=== PATIENT | female | born 1980 | race Caucasian/White ===

== ENCOUNTER → 2016-08-05 | Outpatient (CLI) | payer OTHER ==
[~2016-08-05] MED LIST: ALPR0.25 PO; BSP5T PO; CEFU500T5 PO; CIPR500T78 PO; DOXY100C49 PO; DULO60CA6; FLUO20CA25 PO; HYDR-3454 PO; LABE100T2 PO; LEVO100T PO; LEVO500T80 PO; LEVO75TA57 PO; LORA-405 PO; LVT.05T PO; MAGN250T7 PO; MAGNESIUM PO; NAPR-243 PO; OXYC-12 PO; PRCD5U PO; PRD20T PO; PREN-115 PO; SITA1TAB6 PO; SOLI5TAB4 PO; SPIR100T PO; SPIR100T28 PO; TRAM50TA2 PO; YAZ; ZLP10T; ZLP5T PO; janumet; synth
--- NOTE | 2016-08-05 13:50 | Diagnostic Imaging Report ---
EXAMINATION: Transabdominal and transvaginal pelvic ultrasound. INDICATION: Pelvic pain. FINDINGS: The uterus is 7.4 x 5.6 x 3.4 cm. There is an IUD in place. No myometrial focal lesion is identified. The right ovary is 2.6 x 2.2 x 1.9 cm, only seen on transabdominal evaluation, with no focal lesion identified. Peripheral vascularity with color Doppler appears to be present in it. The left ovary is 4.3 x 4.1 x 5.3 cm. There is a 4.8 x 3.3 x 3.3 cm simple appearing cyst seen within the left ovary. Adjacent ovarian tissue demonstrates color flow with arterial and venous waveforms. The cyst itself demonstrates no internal vascularity or solid component. IMPRESSION: 4.8 cm simple appearing left ovarian cyst. Dictated by: Dictated on workstation # [id number]
== END ==
LOC: RAD 10:12
PROVIDERS: ATTEND Nurse Practitioner Family
DX: N83.202 Unspecified ovarian cyst, left side (principal)
CPT/HCPCS: 76830; 76856

== ENCOUNTER → 2017-07-09 | Outpatient (CLI) | payer BC, OTHER ==
--- NOTE | 2017-07-09 12:22 | Diagnostic Imaging Report ---
INDICATION: Pain. COMPARISON: None. FINDINGS: Two views of the right hip are obtained. There is no acute fracture, malalignment or osseous destructive process. Femoral head appears smooth and round. Hip joint space appears preserved. IMPRESSION: No acute abnormalities demonstrated. Dictated by: Dictated on workstation # [id number]
--- NOTE | 2017-07-09 12:30 | Diagnostic Imaging Report ---
EXAMINATION: Pelvic ultrasound. INDICATION: Pelvic pain. FINDINGS: The previous pelvic ultrasound exam of 08/05/2016 noted a 4.8 cm simple cyst arising from the left ovary. That cyst is no longer evident. However, in the interval since the prior exam, a 2.4 x 2.2 x 2.3 cm benign-appearing cyst has developed on the right ovary. This cyst may contain a few internal echoes suggesting that it is slightly complicated by infection and/or hemorrhage. There are a few subcentimeter follicles on the left ovary. There is no pelvic mass or free fluid collection noted. The uterus is nongravid and not enlarged measuring 8.8 x 5.4 x 3.8 cm. The endometrial lining is not thickened measuring 4 mm. There is shadowing from the endometrial lining. I suspect that this is related to the patient's IUD. The IUD seems to be in good position. IMPRESSION: 1. The cyst associated with the left ovary seen previously has resolved, but a new 2.4 x 2.2 x 2.3 cm slightly complicated cyst has arisen from the right ovary. 2. There is no acute pelvic abnormality noted otherwise. 3. The IUD seems to be in good position. Dictated by: Dictated on workstation # [id number]
--- NOTE | 2017-07-09 12:34 | Diagnostic Imaging Report ---
INDICATION: Low back pain. COMPARISON: None. FINDINGS: Three views of the lumbar spine are obtained. No acute fracture, malalignment or osseous destructive process is seen. Vertebral body heights and disc spaces are maintained. The pedicles appear intact. The sacroiliac joints appear unremarkable. There is an intrauterine device seen just left of midline in the pelvis. IMPRESSION: No acute abnormalities demonstrated. Dictated by: Dictated on workstation # [id number]
== END ==
LOC: RAD 10:26
PROVIDERS: ATTEND Nurse Practitioner Family
DX: N83.291 Other ovarian cyst, right side (principal); M54.5 Low back pain; M25.551 Pain in right hip; Z97.5 Presence of (intrauterine) contraceptive device
CPT/HCPCS: 72100; 73502; 76830; 76856

== ENCOUNTER → 2017-07-15 | Outpatient (CLI) | payer BC ==
--- NOTE | 2017-07-15 10:43 | Diagnostic Imaging Report ---
PROCEDURE: MRI lumbar spine. TECHNIQUE: Multiplanar, multisequence MRI of the lumbar spine was performed without contrast. INDICATION: Right low back pain radiates up back. No radiculopathy. FINDINGS: The alignment of the lumbar spine is normal. The vertebral body heights are well-maintained. No spondylolysis or spondylolisthesis. No fractures are identified. There are no marrow signal intensity abnormalities. Conus medullaris seen at L1 is normal in appearance. All of the lumbar discs are normal in height, signal intensity and morphology. There is no focal disc extrusion or evidence high-grade spinal stenosis. There is some mild lower lumbar hypertrophic degenerative facet disease. The abdominal aorta is nonaneurysmal. Kidneys are unremarkable. IMPRESSION: Mild lower lumbar hypertrophic degenerative facet disease otherwise unremarkable. Specifically there is no focal disc extrusion or evidence of high-grade spinal stenosis. Dictated by: Dictated on workstation # [id number]
== END ==
LOC: RAD 08:35
PROVIDERS: ATTEND Internal Medicine
DX: M51.36 Other intervertebral disc degeneration, lumbar region (principal)
CPT/HCPCS: 72148

== ENCOUNTER 2017-08-21 05:40 | Outpatient (CLI) | payer BC ==
[~2017-08-21] VITALS: Ht 167.6 cm; Wt 74.8 kg
[2017-08-21] MEDS ORDERED: LIOT5TAB3 PO (09:15)
[2017-08-21] MEDS ORDERED: SPIR100T4 PO (09:15)
[2017-08-21] MEDS ORDERED: LIRA0.6P SQ (09:15)
[2017-08-21] MEDS ORDERED: BUPR-42 PO (09:15)
[2017-08-21] MEDS ORDERED: TRAZ-189 PO (09:15)
== END 2017-08-21 09:49 ==
LOC: PREOP 05:40
PROVIDERS: ATTEND Obstetrics & Gynecology
DX: Z01.818 Encounter for other preprocedural examination (principal); R10.2 Pelvic and perineal pain

== ENCOUNTER 2017-08-28 07:49 | Day surgery (SDC) | payer BC ==
[~2017-08-28] VITALS: Ht 167.6 cm; Wt 74.8 kg
[~2017-08-28 07:49] MED LIST changes: +BUPR-42 PO; +LIOT5TAB3 PO; +LIRA0.6P SQ; +SPIR100T4 PO; +TRAZ-189 PO
[2017-08-28] MEDS ORDERED: BUPIVACAINE 0.25% 30 ML (SENSORCAINE) VIAL ONE (08:03)
[2017-08-28] MEDS ORDERED: ROCURONIUM 10 MG/ML 5 ML SYRINGE IV ONE (08:05)
[2017-08-28] MEDS ORDERED: LIDOCAINE PF 2% 5 ML (XYLOCAINE) VIAL ONE (08:05)
[2017-08-28] MEDS ORDERED: proPOfol 200 MG/20 ML (DIPRIVAN) VIAL IV ONE (08:05)
[2017-08-28] MEDS ORDERED: ONDANSETRON 4 MG/2 ML (SDV) Z0FRAN ONE (08:05)
[2017-08-28] MEDS ORDERED: SEVOFLURANE (ULTANE) 15 ML INHAL SOLN ONE ×3 (08:05→09:35)
[2017-08-28] MEDS ORDERED: MIDAZOLAM 2 MG/2 ML (VERSED) VIAL ONE (08:07)
[2017-08-28] MEDS ORDERED: fentaNYL INJECTION 100 MCG/2 ML AMP ONE (08:07)
[2017-08-28] MEDS: LACTATED RINGERS 1,000 ML IV PRN ×2 (08:23→09:11)
[2017-08-28 08:30] LABS: BASOPHILS % (AUTO) 0 % (0-10); EOSINOPHILS # (AUTO) 0.1 10^3/uL (0.0-0.3); EOSINOPHILS % (AUTO) 1 % (0-10); HEMATOCRIT 42 % (35-52); HEMOGLOBIN 14.2 G/DL (11.5-16.0); LYMPHOCYTES # (AUTO) 1.8 X 10^3 (1.0-4.0); LYMPHOCYTES % (AUTO) 26 % (12-44); MEAN CORPUSCULAR HEMOGLOBIN 32 PG (25-34); MEAN CORPUSCULAR HGB CONC 34 G/DL (32-36); MEAN CORPUSCULAR VOLUME 95 FL (80-99); MEAN PLATELET VOLUME 9.6 FL (7.4-10.4); MONOCYTES # (AUTO) 0.6 X 10^3 (0.0-1.0); MONOCYTES % (AUTO) 8 % (0-12); NEUTROPHILS # (AUTO) 4.5 X 10^3 (1.8-7.8); NEUTROPHILS % (AUTO) 64 % (42-75); PLATELET COUNT 293 10^3/uL (130-400); RED BLOOD COUNT 4.43 10^6/uL (4.35-5.85); RED CELL DISTRIBUTION WIDTH 12.6 % (10.0-14.5)
[2017-08-28 08:35] VITALS: BP 118/82
[2017-08-28] MEDS ORDERED: D5 LR IV SOLUTION 1,000 ML IV SCH (08:43)
[2017-08-28] MEDS ORDERED: HYDROcodone/APAP 7.5 MG/325 MG (LORTAB, LORCET PLUS) TABLET PO PRN (08:45)
[2017-08-28] MEDS ORDERED: KETOROLAC 30 MG/ML VIAL IVP ONE (08:45)
[2017-08-28] MEDS ORDERED: ONDANSETRON 4 MG/2 ML (SDV) Z0FRAN IVP PRN ×2 (08:45→10:30)
[2017-08-28] MEDS ORDERED: HYDR-757 PO (08:46)
[2017-08-28] MEDS ORDERED: IBUP-1773 PO (08:46)
--- NOTE | 2017-08-28 08:47 | Discharge Inst-Women's Service ---
Discharge Inst-Women's Serv Depart Medication/Instructions New, Converted or Re-Newed RX: RX on Chart Consults/Follow Up Additional Follow Up: Yes Orders/Referrals DR. Chiang in 2 weeks Activity Activity: Activity as Tolerated Driving Instructions: You May Drive (do not drive while taking hydrocodone) NO SMOKING: NO SMOKING Nothing Inside Vagina: No Douching, No [place], No Tampons Diet Discharge Diet: No Restrictions Symptoms to Report to : Bleeding Excessive, Pain Increased, Fever Over 101 Degrees F, Vaginal Bleeding Increase, Questions/Concerns For Any Problems or Questions: Contact Your Physician Skin/Wound Care Infection Signs and Symptoms: Increased Redness, Foul Odor of Wound, Increased Drainage, Skin Itchy or Has a Rash, Increased Swelling, Temperature Above 101 F Operative Area Clean and Dry: Keep Incision Clean/Dry Stitches/[place]/Dermabond: Dermabond, Care of Stitches Bathing Instructions: DIPESH Anderson DO Aug 28, 2017 8:47 am
[2017-08-28] MEDS ORDERED: NEOSTIGMINE 1 MG/ML 5 ML SYRINGE ONE (09:34)
[2017-08-28] MEDS ORDERED: GLYCOPYRROLATE 0.2 MG/ML (ROBINUL) 2 ML VIAL ONE (09:34)
[2017-08-28] MEDS ORDERED: morphine INJ 10 MG/ML 1ML (SYR OR VIAL) ONE (10:06)
[2017-08-28] MEDS ORDERED: morphine INJ 10 MG/ML 1ML (SYR OR VIAL) IVP PRN (10:30)
[2017-08-28] MEDS ORDERED: HYDROmorphone 1 MG/ML (DILAUDID) 1 ML SYRINGE IV PRN (10:30)
--- NOTE | 2017-08-28 10:41 | Anesthesia-General Post-Op ---
General Patient Condition Mental Status/LOC: Same as Preop Cardiovascular: Satisfactory Nausea/Vomiting: Absent Respiratory: Satisfactory Pain: Controlled Complications: Absent Post Op Complications Complications None Follow Up Care/Instructions Patient Instructions None needed. Anesthesia/Patient Condition Patient Condition Patient is doing well, no complaints, stable vital signs, no apparent adverse anesthesia problems. No complications reported per nursing. D/C home per [facility] [place] Criteria: No HUONG WOODALL CRNA Aug 28, 2017 10:41
[2017-08-28 10:50] VITALS: BP 116/71
[2017-08-28 11:20] VITALS: BP 120/99
[2017-08-28 11:50] VITALS: BP 111/79
[2017-08-28 12:20] VITALS: BP 111/79
--- NOTE | 2017-08-28 17:32 | OPERATIVE REPORT ---
DATE OF SERVICE: PREOPERATIVE DIAGNOSES: A 36-year-old female with chronic pelvic pain. POSTOPERATIVE DIAGNOSES: 1. A 36-year-old female with chronic pelvic pain. 2. Endometriosis implants of the pelvic peritoneum. SURGEON: Santos Chiang DO HUMAN RESOURCES TRAINING MANAGER: Candis Banegas, MS-3 ANESTHESIA: General endotracheal. ESTIMATED BLOOD LOSS: Minimal. URINE OUTPUT: 200 mL clear at the end of the procedure. FLUIDS: 1900 mL of lactated Ringer solution. FINDINGS: A grossly normal appearing uterus, bilateral fallopian tubes and ovaries with implants of both clear and dark pigmented endometriosis implants of the pelvic peritoneum including the left pelvic sidewall, the posterior cul-de-sac, the uterosacral ligaments, the ovarian fossa and the left ovary. The vesicouterine peritoneum did not have any implants. SPECIMENS SENT: None. INDICATIONS FOR PROCEDURE: This 36-year-old female was a self-consultation in my office for ongoing issues with chronic pelvic pain. She had a Kyleena IUD, but has had this for several years and has been amenorrheic with the IUD. She also had had a recent new sexual partner; however, initial STD testing and infectious disease testing has all been negative. After a full workup was performed, an ultrasound was performed and found to be normal. We discussed proceeding with diagnostic laparoscopy. The patient was at a point where her pain was significant enough that she thought that this was a good idea as well. Risks of the procedure were discussed with the patient in detail including risks of bleeding, infection, damage to surrounding structures including, but not limited to bowel, bladder, ureter, kidneys, possible need for reoperation, postoperative complications, risks from anesthesia and even . After everything was discussed with the patient, consent was obtained in the preoperative area and the patient was taken to the operating room. OPERATIVE REPORT IN DETAIL: Once in the operating room, general anesthesia was found to be adequate. She was placed in dorsal lithotomy position, prepped and draped in normal sterile fashion. A Ching catheter was placed using sterile technique and timeout was performed. A weighted speculum was inserted in the patient's vagina and the IUD Kyleena strings are identified. I then removed the weighted speculum and placed a sponge stick in the patient's vagina for uterine manipulation. I then took my attention to the abdomen after change of gloves performed and infraumbilically, I infiltrated this area using 0.25% Marcaine to make a 5 mm incision and directed Veress needle through the incision until intraperitoneal placement was confirmed using a saline drop test. I then proceeded with insufflation using CO2 gas and opening pressure of 7 mmHg was noted. I proceeded to a maximum pressure of 15 mmHg, at which point I removed the Veress needle and introduced a 5 mm blunt trocar. I was able to confirm intraperitoneal placement using the laparoscope. I then had the patient placed in steep Trendelenburg and I was able to find all of my findings as listed above. I was not able to manipulate the uterus as well as I would like with just a sponge stick. Therefore, I placed a suprapubic trocar 5 mm and a left lower quadrant trocar 5 mm in similar fashion. Once these were placed under direct visualization of the laparoscope, I was able to manipulate the uterus and cauterized all endometriosis implants as described in my findings above. After which, there was no active bleeding noted from any of my dissection planes. I then copiously irrigated the pelvis using normal saline. Once again, no active bleeding was noted. I then had the patient taken out of steep Trendelenburg where I released insufflation and removed the trocars both suprapubic and the left lower quadrant under direct visualization of the laparoscope. The infraumbilical trocar was left in place to release the last bit of insufflation and to introduce 10 mL of 0.25% Marcaine into the peritoneal cavity for postoperative pain management. I then removed this trocar as well. The skin was then reapproximated using Dermabond. Bandages were placed over the incisions. Ching catheter was removed. The patient tolerated the procedure well and sent to recovery in stable condition. Lap and sponge counts were correct at the end of the procedure. Instrument count was correct as well. Job ID: [id number] DocumentID: [id number] Dictated Date: 08/28/2017 10:01:11 Preform Plate Maker Date: 08/28/2017 17:31:23 Dictated By: DO TREY JIMENEZ
== END 2017-08-28 12:20 | disposition home or self-care (01) ==
LOC: SDC 07:49
PROVIDERS: ATTEND Obstetrics & Gynecology
DX: N80.3 Endometriosis of pelvic peritoneum (principal); E11.9 Type 2 diabetes mellitus without complications; Z79.899 Other long term (current) drug therapy
CPT/HCPCS: 36415; 84703; 85025; 86850; 86900; 86901; 87081; 94664

== ENCOUNTER → 2018-03-12 | Outpatient (CLI) | payer BC ==
[~2018-03-12] MED LIST changes: +HYDR-4226 PO; +IBUP-1773 PO
--- NOTE | 2018-03-12 13:08 | Diagnostic Imaging Report ---
PROCEDURE: MRI lumbar spine. TECHNIQUE: Multiplanar, multisequence MRI of the lumbar spine was performed without contrast. INDICATION: Back pain. COMPARISON: Comparison made to prior examination 07/15/2017. FINDINGS: The alignment of the lumbar spine is normal. The vertebral body heights are well-maintained. There is no spondylolysis or spondylolisthesis. No fractures are identified. All of the lumbar discs are normal in height, signal intensity and morphology. Conus medullaris seen at L1 is normal in appearance. There is no focal disc extrusion or high-grade spinal stenosis. The aorta is nonaneurysmal. There is a small cyst in the left kidney. Note is again made of some mild lower lumbar hypertrophic degenerative facet disease. IMPRESSION: 1. Unchanged mild lower lumbar hypertrophic degenerative facet disease however no focal disc extrusion, spinal stenosis or fracture. 2. Left renal cyst. Dictated by: Dictated on workstation # [id number]
== END ==
LOC: RAD 12:02
PROVIDERS: ATTEND Internal Medicine
DX: M51.36 Other intervertebral disc degeneration, lumbar region (principal); N28.1 Cyst of kidney, acquired
CPT/HCPCS: 72148

== ENCOUNTER → 2018-05-19 | Outpatient (CLI) | payer BC ==
--- NOTE | 2018-05-19 12:38 | Diagnostic Imaging Report ---
PROCEDURE: CT abdomen and pelvis with contrast. TECHNIQUE: Multiple contiguous axial images were obtained through the abdomen and pelvis after administration of intravenous contrast. Auto Exposure Controls were utilized during the CT exam to meet ALARA standards for radiation dose reduction. INDICATION: Pelvic pain. FINDINGS: The previous CT abdomen and pelvis exam on 12/06/2014 noted that there was an IUD within the uterus. Reportedly, the patient did undergo hysterectomy in March 2018. On this exam, the uterus is not visualized. There is no solid pelvic mass or free fluid collection to suggest an acute abnormality. They previously did note a 2.7 cm left adnexal cyst. On this exam, there is a similar-sized, similar-appearing, low-density lesion in this region. I suspect that this is a cyst arising from the left ovary. If further evaluation is desired, an ultrasound would be recommended. The right ovary was not well visualized. The urinary bladder is only partially filled and consequently difficult to assess. There is no obvious bladder abnormality evident. The appendix was not visualized. There do appear to be surgical clips near the tip of the cecum. These were not present on the prior exam and the patient may have undergone an appendectomy in the interval since the previous study. Correlation with the patient's surgical history would be recommended. There may be a few diverticula involving the sigmoid and descending colon. There is no clearance for acute diverticulitis, however. The liver, spleen, pancreas, adrenals, kidneys, aorta and inferior vena cava show no sign of an acute abnormality. As noted on the prior exam, the gallbladder is surgically absent. The stomach is partially filled with fluid and consequently difficult to assess. The lung bases are clear. The bone window shows no sign of fracture or destructive lesion. IMPRESSION: 1. There are postoperative changes consistent with recent hysterectomy. There is no pelvic mass or free fluid collection to suggest an acute abnormality, however. 2. The 2.7 cm low-density lesion in the left adnexa is most likely an ovarian cyst. If further studies are desired, an ultrasound would be recommended. 3. The appendix is not visualized and may be surgically absent. Correlation with the patient's surgical history is recommended. 4. There may be a few diverticula in the sigmoid and descending colon. There is no definite evidence for acute diverticulitis, however. Dictated by: Dictated on workstation # [id number]
== END ==
LOC: RAD 10:11
PROVIDERS: ATTEND Nurse Practitioner Family
DX: N83.8 Other noninflammatory disorders of ovary, fallopian tube and broad ligament (principal); R10.2 Pelvic and perineal pain; Z90.710 Acquired absence of both cervix and uterus
CPT/HCPCS: 74177

== ENCOUNTER → 2018-09-24 | Outpatient (CLI) | payer BC ==
[~2018-09-24] MED LIST changes: +LIOT5TAB PO; -LIOT5TAB3 PO; -TRAZ-189 PO; +TRAZ-222 PO
--- NOTE | 2018-09-24 13:10 | Diagnostic Imaging Report ---
PROCEDURE: US Non-ob pelvis comp/trans. TECHNIQUE: Multiple realtime grayscale images were obtained of the pelvis in various projections endovaginally. Transabdominal imaging was also performed. INDICATION: Hysterectomy in March. Patient complains of pelvic pain. FINDINGS: Uterus is surgically absent. Ovaries are not visualized. No pelvic mass or fluid collection is detected. IMPRESSION: Status post hysterectomy. No pelvic mass or fluid collection is identified. Dictated by: Dictated on workstation # [id number]
== END ==
LOC: RAD 12:02
PROVIDERS: ATTEND Obstetrics & Gynecology
DX: G89.29 Other chronic pain (principal); R10.2 Pelvic and perineal pain; Z90.710 Acquired absence of both cervix and uterus
CPT/HCPCS: 76830; 76856

== ENCOUNTER 2018-10-08 08:00 | Day surgery (SDC) | payer BC ==
[~2018-10-08] VITALS: Ht 167.6 cm; Wt 95.7 kg
[2018-10-08] VITALS (10 sets, daily range): BP systolic 112–130; BP diastolic 61–84
[~2018-10-08 08:00] MED LIST changes: +MAGN500C15 PO; +MULT-884 PO; +SEMA1PEN SQ
[2018-10-08] MEDS ORDERED: LIDOCAINE PF 2% 5 ML (XYLOCAINE) VIAL ONE (08:22)
[2018-10-08] MEDS ORDERED: proPOfol 200 MG/20 ML (DIPRIVAN) VIAL IV ONE (08:22)
[2018-10-08] MEDS ORDERED: fentaNYL INJECTION 100 MCG/2 ML AMP ONE (08:22)
[2018-10-08] MEDS ORDERED: ROCURONIUM 10 MG/ML 5 ML SYRINGE IV ONE (08:25)
[2018-10-08] MEDS ORDERED: SEVOFLURANE (ULTANE) 15 ML INHAL SOLN ONE (08:25)
[2018-10-08] MEDS ORDERED: ONDANSETRON 4 MG/2 ML (SDV) Z0FRAN ONE (08:25)
[2018-10-08] MEDS ORDERED: DEXAMETHASONE 10 MG/ML (DECADRON) 1 ML VIAL ONE (08:25)
[2018-10-08] MEDS ORDERED: ONDANSETRON 4 MG/2 ML (SDV) Z0FRAN IV ONE (08:30)
[2018-10-08] MEDS ORDERED: FAMOTIDINE 20MG/2ML IV (PEPCID) IV ONE (08:30)
[2018-10-08] MEDS ORDERED: MIDAZOLAM 2 MG/2 ML (VERSED) VIAL IV ONE (08:30)
[2018-10-08] MEDS ORDERED: LACTATED RINGERS 1,000 ML IV PRN (08:36)
[2018-10-08] MEDS ORDERED: BUPIVACAINE 0.25% 30 ML (SENSORCAINE) VIAL ONE (08:38)
[2018-10-08] MEDS ORDERED: METHYLENE BLUE 0.5% (PROVAYBLUE) 50 mg/10 ml vial IV ONE (08:39)
[2018-10-08 08:40] LABS: BASOPHILS % (AUTO) 0 % (0-10); EOSINOPHILS # (AUTO) 0.1 10^3/uL (0.0-0.3); EOSINOPHILS % (AUTO) 1 % (0-10); HEMATOCRIT 42 % (35-52); LYMPHOCYTES # (AUTO) 1.8 X 10^3 (1.0-4.0); LYMPHOCYTES % (AUTO) 19 % (12-44); MEAN CORPUSCULAR HEMOGLOBIN 30 PG (25-34); MEAN CORPUSCULAR HGB CONC 33 G/DL (32-36); MEAN CORPUSCULAR VOLUME 92 FL (80-99); MONOCYTES # (AUTO) 0.8 X 10^3 (0.0-1.0); MONOCYTES % (AUTO) 8 % (0-12); NEUTROPHILS # (AUTO) 6.8 X 10^3 (1.8-7.8); NEUTROPHILS % (AUTO) 72 % (42-75); PLATELET COUNT 331 10^3/uL (130-400); RED CELL DISTRIBUTION WIDTH 12.9 % (10.0-14.5); WHITE BLOOD COUNT 9.5 10^3/uL (4.3-11.0)
--- NOTE | 2018-10-08 09:25 | Progress Note-Pre Operative ---
Pre-Operative Progress Note H&P Reviewed The H&P was reviewed, patient examined and no changes noted. Date Seen by Provider: Oct 08, 2018 Time Seen by Provider: 09:25 Date H&P Reviewed: Oct 08, 2018 Time H&P Reviewed: 09:25 Pre-Operative Diagnosis: CPP, Dyspareunia DIPESH GUADALUPE DO Oct 08, 2018 09:25
[2018-10-08] MEDS ORDERED: NEOSTIGMINE 3 MG/3 ML VIAL ONE (09:36)
[2018-10-08] MEDS ORDERED: GLYCOPYRROLATE 0.2 MG/ML (ROBINUL) 2 ML VIAL ONE (09:36)
[2018-10-08] MEDS ORDERED: KETOROLAC 30 MG/ML VIAL ONE (09:36)
[2018-10-08] MEDS ORDERED: DESFLURANE (SUPRANE) 15 ML INHAL SOLN ONE (09:39)
[2018-10-08] MEDS ORDERED: D5 LR IV SOLUTION 1,000 ML IV SCH (09:55)
[2018-10-08] MEDS ORDERED: KETOROLAC 30 MG/ML VIAL IVP ONE (10:00)
[2018-10-08] MEDS ORDERED: HYDROcodone/APAP 5 MG/325 MG (LORTAB) TAB PO PRN (10:00)
[2018-10-08] MEDS ORDERED: MEPERIDINE (DEMEROL) INJ 50 MG/ML IVP ONE (10:00)
[2018-10-08] MEDS ORDERED: HYDROmorphone 2 MG/ML VIAL (DILAUDID) IV ONE (10:00)
[2018-10-08] MEDS ORDERED: ONDANSETRON 4 MG/2 ML (SDV) Z0FRAN IVP PRN ×2 (10:00)
[2018-10-08] MEDS ORDERED: PROMETHAZINE INJ 25 MG/ML (PHENERGAN) AMP IVP ONE (10:00)
[2018-10-08] MEDS ORDERED: morphine INJ 10 MG/ML 1ML (SYR OR VIAL) IVP ONE (10:00)
--- NOTE | 2018-10-08 10:00 | Discharge Inst-Women's Service ---
Discharge Inst-Women's Serv Depart Medication/Instructions New, Converted or Re-Newed RX: RX on Chart Problems Reviewed?: Yes Consults/Follow Up Additional Follow Up: Yes Orders/Referrals Dr. Chiang in 7-10 days Activity Activity: Activity as Tolerated Driving Instructions: No Driving for 1 Week (while taking narcotic pain meds) NO SMOKING: NO SMOKING Symptoms to Report to : Bleeding Excessive, Pain Increased, Fever Over 101 Degrees F, Vaginal Bleeding Increase, Questions/Concerns For Any Problems or Questions: Contact Your Physician Skin/Wound Care Infection Signs and Symptoms: Increased Redness, Foul Odor of Wound, Increased Drainage, Skin Itchy or Has a Rash, Increased Swelling, Temperature Above 101 F Operative Area Clean and Dry: Keep Incision Clean/Dry Stitches/[place]/Dermabond: Dermabond, Care of Stitches Bathing Instructions: DIPESH Anderson DO Oct 08, 2018 10:00
[2018-10-08] MEDS ORDERED: IBUP-1773 PO (10:02)
[2018-10-08] MEDS ORDERED: ACHD5005 PO (10:02)
--- NOTE | 2018-10-08 12:21 | Anesthesia-General Post-Op ---
General Patient Condition Mental Status/LOC: Same as Preop Cardiovascular: Satisfactory Nausea/Vomiting: Absent Respiratory: Satisfactory Pain: Controlled Complications: Absent Post Op Complications Complications None Follow Up Care/Instructions Patient Instructions None needed. Anesthesia/Patient Condition Patient Condition Patient is doing well, no complaints, stable vital signs, no apparent adverse anesthesia problems. No complications reported per nursing. ANGELES TEJADA CRNA Oct 08, 2018 12:21
--- NOTE | 2018-10-08 15:42 | OPERATIVE REPORT ---
DATE OF SERVICE: PREOPERATIVE DIAGNOSES: 1. A 38-year-old female with chronic pelvic pain. 2. Dyspareunia. POSTOPERATIVE DIAGNOSES: 1. A 38-year-old female with chronic pelvic pain. 2. Dyspareunia. PROCEDURE: Laparoscopic lysis of adhesions. SURGEON: Dipesh Guadalupe DO ANESTHESIA: General endotracheal. ESTIMATED BLOOD LOSS: Minimal. URINE OUTPUT: 50 mL clear at the end of the procedure. FLUIDS: 1200 mL lactated Ringer solution. FINDINGS: A grossly normal appearing pelvis with evidence of previous hysterectomy, appropriate healing with the exception of the left ovary adhesed to the lateral pelvic sidewall, completely out of the left ovarian fascia. The right ovary appears grossly normal, grossly normal upper abdominal anatomy as well. SPECIMEN SENT: None. INDICATIONS FOR PROCEDURE: This 38-year-old female is the patient who came back to my office after going to [place] to have a hysterectomy due to chronic pelvic pain. At the time of her hysterectomy, her surgeon in [place] decided to leave her ovaries behind as there was no underlying suspicion for endometriosis and no evidence of endometriosis grossly on examination. Pathology also reflect this as well. The patient then returned to [place] where she saw nurse practitioner and the nurse practitioner recommended her seeing a bridge expert again for evaluation of this chronic pelvic pain. Upon my evaluation with the patient, there were no abnormalities noted. However, the patient was wanting to proceed with laparoscopy due to she had concerns with this pain worsening since her hysterectomy earlier this year. Risk of laparoscopy was discussed with the patient in detail including risk of bleeding, infection, damage to surrounding structures including but not limited to bowel, bladder, ureter, kidneys, possible postoperative complications including blood clot, stroke, hematoma formation, possible need for reoperation and even . After everything was discussed with the patient, I also discussed with her proceeding with pelvic floor physical therapy. The patient wishes to proceed with surgery first. Consent was obtained and the patient was then taken to the operating room. OPERATIVE REPORT IN DETAIL: Once in the operating room, general anesthesia was found to be adequate, placed in dorsal lithotomy position, prepped and draped in normal sterile fashion. A timeout was performed. A Ching catheter was placed using sterile technique. There is no uterus present; therefore no manipulator was placed in the vagina. I began the case by infiltrating the supraumbilical area through a previously existing trocar site using 0.25% Marcaine and make an elliptical incision around this previously existing keloid scar to excise it. After this was done, I introduced the Veress needle into the incision until intraperitoneal placement is confirmed using saline drop test. I then proceeded with insufflation using CO2 gas and opening pressure 4 mmHg was noted. I proceeded to maximum pressure of 15 mmHg, at which point I removed the Veress needle and introduced a 5 mm blunt laparoscopic trocar. Once this was in place, I am able to confirm intraperitoneal placement using the laparoscope. There was no evidence of damage upon my entry and the upper abdominal anatomy appears grossly normal. The lower abdominal anatomy was visualized after the patient was placed in steep Trendelenburg and is as described in my findings above. The left ovary was adhesed to the left pelvic sidewall, so these adhesions were taken down with a grasper and EndoShears. Once these adhesions were taken down, the ovary was free floating. I then copiously irrigated the pelvis using normal saline. No active bleeding noted from any of my dissection planes. I take photodocumentation of the pelvis, the vaginal cuff, bilateral ovaries, bilateral ovarian fossa. There is no evidence of endometriosis on laparoscopy today. I then had the patient taken out of steep Trendelenburg and released insufflation after visualizing the suprapubic trocar, which was placed earlier in the procedure. This was also 5 mm trocar. Once that trocar is removed under direct visualization of laparoscope, the infraumbilical trocar was left in place to release insufflation and to introduce 10 mL of 0.25% Marcaine for postoperative pain management into the peritoneal cavity. This trocar was then removed as well. The skin of the revised incision was then reapproximated using 4-0 Monocryl in interrupted subcuticular stitches. The other incision is closed as well using 4-0 Monocryl in interrupted subcuticular stitches. Dermabond was applied to both incisions and Band-Aids were placed over the incisions as well. The patient tolerated the procedure well and sent to recovery area in stable condition. Lap and sponge counts were correct at the end of the procedure. Instrument counts correct as well. Ching catheter was removed. Job ID: [id number] DocumentID: [id number] Dictated Date: 10/08/2018 11:14:44 Supply Chain Manager Date: 10/08/2018 15:41:38 Dictated By: DIPESH GUADALUPE DO
== END 2018-10-08 12:00 | disposition home or self-care (01) ==
LOC: SDC 08:00
PROVIDERS: ATTEND Obstetrics & Gynecology
DX: N73.6 Female pelvic peritoneal adhesions (postinfective) (principal); N94.10 Unspecified dyspareunia; R10.2 Pelvic and perineal pain; G89.29 Other chronic pain; E03.9 Hypothyroidism, unspecified; F32.9 Major depressive disorder, single episode, unspecified; F41.9 Anxiety disorder, unspecified; K21.9 Gastro-esophageal reflux disease without esophagitis; E66.9 Obesity, unspecified; E87.70 Fluid overload, unspecified; Z90.710 Acquired absence of both cervix and uterus; Z68.34 Body mass index [BMI] 34.0-34.9, adult; Z90.49 Acquired absence of other specified parts of digestive tract; Z88.1 Allergy status to other antibiotic agents; Z88.0 Allergy status to penicillin; Z79.899 Other long term (current) drug therapy; Z83.3 Family history of diabetes mellitus; Z82.49 Family history of ischemic heart disease and other diseases of the circulatory system; Z83.42 Family history of familial hypercholesterolemia
CPT/HCPCS: 36415; 85025; 86850; 86900; 86901; 87081

== ENCOUNTER 2019-01-02 20:29 | Outpatient (CLI) | payer BC ==
[~2019-01-02 20:29] MED LIST changes: +ACHD5005 PO
== END 2019-01-03 06:57 | disposition home or self-care (01) ==
LOC: RAD 20:29
PROVIDERS: ATTEND Nurse Practitioner Family
DX: G47.00 Insomnia, unspecified (principal); G47.10 Hypersomnia, unspecified
CPT/HCPCS: 95810

== ENCOUNTER 2019-02-13 15:43 | Emergency (ER) | payer BC ==
[~2019-02-13] VITALS: Ht 167 cm; Wt 97.7 kg
[~2019-02-13 15:43] MED LIST changes: -TRAM50TA2 PO; +TRM50T PO
[2019-02-13] MEDS ORDERED: KETOROLAC 30 MG/ML VIAL IVP ONE (16:45)
[2019-02-13] MEDS ORDERED: diphenhydrAMINE 50 MG/ML INJ (BENADRYL) IVP ONE (16:45)
[2019-02-13] MEDS ORDERED: NS IV 1000 ML 1,000 ML IV SCH (16:45)
[2019-02-13] MEDS ORDERED: PROMETHAZINE INJ 25 MG/ML (PHENERGAN) AMP IVP ONE (16:45)
[2019-02-13 17:10] LABS: BILIRUBIN,URINE NEGATIVE (NEGATIVE); CLARITY,URINE CLEAR; COLOR,URINE YELLOW; GLUCOSE, URINE (UA) NEGATIVE (NEGATIVE); KETONES,URINE NEGATIVE (NEGATIVE); LEUKOCYTE ESTERASE ,URINE TRACE (NEGATIVE); NITRITE,URINE NEGATIVE (NEGATIVE); PROTEIN,URINE TRACE (NEGATIVE)
[2019-02-13 17:25] LABS: BASOPHILS % (AUTO) 0 % (0-10); EOSINOPHILS # (AUTO) 0.1 10^3/uL (0.0-0.3); EOSINOPHILS % (AUTO) 1 % (0-10); HEMATOCRIT 46 % (35-52); HEMOGLOBIN 15.3 G/DL (11.5-16.0); LYMPHOCYTES # (AUTO) 1.4 X 10^3 (1.0-4.0); LYMPHOCYTES % (AUTO) 19 % (12-44); MEAN CORPUSCULAR HEMOGLOBIN 31 PG (25-34); MEAN CORPUSCULAR HGB CONC 34 G/DL (32-36); MEAN CORPUSCULAR VOLUME 91 FL (80-99); MEAN PLATELET VOLUME 10.4 FL (7.4-10.4); MONOCYTES # (AUTO) 0.8 X 10^3 (0.0-1.0); MONOCYTES % (AUTO) 11 % (0-12); NEUTROPHILS # (AUTO) 5.1 X 10^3 (1.8-7.8); NEUTROPHILS % (AUTO) 69 % (42-75); PLATELET COUNT 272 10^3/uL (130-400); RED CELL DISTRIBUTION WIDTH 13.2 % (10.0-14.5); WHITE BLOOD COUNT 7.4 10^3/uL (4.3-11.0)
[2019-02-13 17:32] LABS: BACTERIA,URINE MODERATE /HPF
[2019-02-13 17:37] LABS: ALANINE AMINOTRANSFERASE 19 U/L (0-55); ALBUMIN 4.2 GM/DL (3.2-4.5); ALKALINE PHOSPHATASE 75 U/L (40-136); BILIRUBIN,TOTAL 0.2 MG/DL (0.1-1.0); BUN/CREATININE RATIO 9; CALCIUM 8.6 MG/DL (8.5-10.1); CARBON DIOXIDE 21 MMOL/L (21-32); CHLORIDE 104 MMOL/L (98-107); CREATININE SERUM 0.86 MG/DL (0.60-1.30); GFR ESTIMATED > 60; GLUCOSE 107 MG/DL (70-105); POTASSIUM 3.3 MMOL/L (3.6-5.0); SODIUM 139 MMOL/L (135-145); TOTAL PROTEIN 7.2 GM/DL (6.4-8.2)
[2019-02-13] MEDS ORDERED: fentaNYL INJECTION 100 MCG/2 ML AMP IVP ONE (17:45)
--- NOTE | 2019-02-13 18:00 | ED GI ---
General Chief Complaint: Abdominal/GI Problems Stated Complaint: HEAD PAIN/N/V Nursing Triage Note: PT PRESENTS TO ED WITH COMPLAINTS OF N/V/D SINCE 02/12/19. PT REPORTS SIMMONS STARTING TODAY Sepsis Screen: No Definite Risk Source of Information: Patient, Family Exam Limitations: No Limitations History of Present Illness Date Seen by Provider: Feb 13, 2019 Time Seen by Provider: 17:53 Initial Comments This 38-year-old white female presents with nausea vomiting and diarrhea that began 24 hours ago. Patient now has an associated headache. The patient denies fever, chills, photophobia or stiff neck, hematemesis or lacquered stools, associated dysuria frequency or flank pain. Past medical history includes migraine headaches. Allergies and Home Medications Allergies Coded Allergies: Penicillins (Verified Allergy, Mild, RASH, 08/21/17) vancomycin (Unverified Allergy, Mild, JOHN SYNDROME, 08/21/17) Uncoded Allergies: skin glue (Adverse Reaction, Mild, itchy, red, raised rash, 10/13/18) Home Medications Bupropion HCl 150 Mg Tab.er.24h, 150 MG PO BID, (Reported) Hydrocodone Bit/Acetaminophen 1 Tab Tab, 2 TAB PO Q6HR PRN for PAIN-MODERATE Prescribed by: DIPESH GUADALUPE on 10/08/18 1002 Ibuprofen 600 Mg Tablet, 600 MG PO Q6H Prescribed by: DIPESH GUADALUPE on 10/08/18 1002 Levothyroxine Sodium 100 Mcg Tablet, 100 MCG PO DAILY, (Reported) Liothyronine Sodium 5 Mcg Tablet, 5 MCG PO DAILY, (Reported) Magnesium Oxide 500 Mg Capsule, 500 MG PO DAILY, (Reported) Multivits,Ca,Minerals/Iron/FA 1 Each Tablet, 1 EACH PO DAILY, (Reported) Semaglutide 1 Mg/0.75 Ml Pen.injctr, 1 MG SQ WEEK, (Reported) Spironolactone 100 Mg Tablet, 100 MG PO DAILY, (Reported) Trazodone HCl 50 Mg Tablet, 50 MG PO HS, (Reported) Patient Home Medication List Home Medication List Reviewed: Yes Review of Systems Review of Systems Constitutional: No chills, No fever; malaise, other (headache) EENTM: No Symptoms Reported Respiratory: Denies Cough, Denies SOA at Rest Cardiovascular: Denies Chest Pain, Denies Palpitations Gastrointestinal: Diarrhea, Nausea, Vomiting Genitourinary: Denies Burning, Denies Frequency Musculoskeletal: No back pain Skin: No change in color, No rash Psychiatric/Neurological: Headache Endocrine: No Symptoms Reported Hematologic/Lymphatic: No Symptoms Reported Past Ehfujcz-Ersjib-Njbhsf Hx Past Med/Social Hx: Reviewed Nursing Past Med/Soc Hx Patient Social History Alcohol Use: Rarely Uses Recreational Drug Use: No Smoking Status: Never a Smoker Recent Foreign Travel: No Contact w/Someone Who Travel: No Recent Infectious Disease Expo: No Recent Hopitalizations: No Immunizations Up To Date Date of Influenza Vaccine: Nov 25, 2017 Seasonal Allergies Seasonal Allergies: Yes (WEEKLY ALLERGY SHOTS) Past Medical History Surgeries: Yes (SINUS SURGERY, BREAST REDUCTION, DXLS) Gallbladder, Hysterectomy Respiratory: No Cardiac: Yes (IRREG HEARTBEAT A CHILD) Irregular Heartbeat Neurological: No Reproductive Disorders: Yes (CPP) Female Reproductive Disorders: Menstrual Problems, Polycystic Ovarian Dis TYPING SECTION 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 History: Hysterectomy, IUD Sexually Transmitted Disease: No HIV/AIDS: No Genitourinary: No Gastrointestinal: No Musculoskeletal: Yes (DISC ISSUES) Endocrine: Yes (INSULIN RESISTANCE) Hypothyroidsim HEENT: No Loss of Vision: Bilateral Hearing Impairment: Denies Cancer: No Psychosocial: Yes Anxiety, Depression Integumentary: No Blood Disorders: No Adverse Reaction/Blood Tranf: No (N/A) Family Medical History No Pertinent Family Hx Physical Exam Vital Signs Vital Signs - First Documented 02/13/19 16:09 Temp 36.8 Pulse 104 Resp 20 B/P (MAP) 158/100 (119) Pulse Ox 99 Capillary Refill : Less Than 3 Seconds Height/Weight/BMI Height: 5'6.00" Weight: 211lbs. 0.0oz. 95.589508hy; 35.00 BMI Method:Stated General Appearance: WD/WN, mild distress HEENT: normal ENT inspection Neck: non-tender, full range of motion, supple Respiratory: lungs clear Cardiovascular: regular rate, rhythm Gastrointestinal: normal bowel sounds, non tender, soft Extremities: normal range of motion, non-tender, normal inspection Back: normal inspection Neurologic/Psychiatric: no motor/sensory deficits, alert, normal mood/affect, oriented x 3 Skin: normal color, warm/dry Progress/Results/Core Measures Results/Orders Lab Results Laboratory Tests Test 02/13/19 17:00 Range/Units White Blood Count 7.4 4.3-11.0 10^3/uL Red Blood Count 5.01 4.35-5.85 10^6/uL Hemoglobin 15.3 11.5-16.0 G/DL Hematocrit 46 35-52 % Mean Corpuscular Volume 91 80-99 FL Mean Corpuscular Hemoglobin 31 25-34 PG Mean Corpuscular Hemoglobin Concent 34 32-36 G/DL Red Cell Distribution Width 13.2 10.0-14.5 % Platelet Count 272 130-400 10^3/uL Mean Platelet Volume 10.4 7.4-10.4 FL Neutrophils (%) (Auto) 69 42-75 % Lymphocytes (%) (Auto) 19 12-44 % Monocytes (%) (Auto) 11 0-12 % Eosinophils (%) (Auto) 1 0-10 % Basophils (%) (Auto) 0 0-10 % Neutrophils # (Auto) 5.1 1.8-7.8 X 10^3 Lymphocytes # (Auto) 1.4 1.0-4.0 X 10^3 Monocytes # (Auto) 0.8 0.0-1.0 X 10^3 Eosinophils # (Auto) 0.1 0.0-0.3 10^3/uL Basophils # (Auto) 0.0 0.0-0.1 10^3/uL Urine Color YELLOW Urine Clarity CLEAR Urine pH 6.0 5-9 Urine Specific Foster 1.015 L 1.016-1.022 Urine Protein TRACE NEGATIVE Urine Glucose (UA) NEGATIVE NEGATIVE Urine Ketones NEGATIVE NEGATIVE Urine Nitrite NEGATIVE NEGATIVE Urine Bilirubin NEGATIVE NEGATIVE Urine Urobilinogen 0.2 < = 1.0 MG/DL Urine Leukocyte Esterase TRACE NEGATIVE Urine RBC (Auto) 2+ H NEGATIVE Urine RBC 2-5 H /HPF Urine WBC 2-5 /HPF Urine Squamous Epithelial Cells 10-25 H /HPF Urine Crystals NONE /LPF Urine Bacteria MODERATE H /HPF Urine Casts NONE /LPF Urine Mucus NEGATIVE /LPF Urine Culture Indicated YES Sodium Level 139 135-145 MMOL/L Potassium Level 3.3 L 3.6-5.0 MMOL/L Chloride Level 104 98-107 MMOL/L Carbon Dioxide Level 21 21-32 MMOL/L Anion Gap 14 5-14 MMOL/L Blood Urea Nitrogen 8 7-18 MG/DL Creatinine 0.86 0.60-1.30 MG/DL Estimat Glomerular Filtration Rate > 60 BUN/Creatinine Ratio 9 Glucose Level 107 H 70-105 MG/DL Calcium Level 8.6 8.5-10.1 MG/DL Corrected Calcium 8.4 L 8.5-10.1 MG/DL Total Bilirubin 0.2 0.1-1.0 MG/DL Aspartate Amino Transf (AST/SGOT) 21 5-34 U/L Alanine Aminotransferase (ALT/SGPT) 19 0-55 U/L Alkaline Phosphatase 75 40-136 U/L Total Protein 7.2 6.4-8.2 GM/DL Albumin 4.2 3.2-4.5 GM/DL My Orders Orders - VILMA ALEMAN MD Ns Iv 1000 Ml (Sodium Chloride 0.9%) (02/13/19 16:45) Promethazine Injection (Phenergan Injec (02/13/19 16:45) Diphenhydramine Injection (Benadryl Inje (02/13/19 16:45) Ketorolac Injection (Toradol Injection) (02/13/19 16:45) Cbc With Automated Diff (02/13/19 16:34) Comprehensive Metabolic Panel (02/13/19 16:34) Ua Culture If Indicated (02/13/19 16:34) Urine Culture (02/13/19 17:00) Fentanyl Injection (Sublimaze Injection (02/13/19 17:45) Medications Given in ED Current Medications Medications Dose Ordered Sig/Trey Route Start Time Stop Time Status Last Admin Dose Admin Diphenhydramine HCl 25 mg ONCE ONCE IVP 02/13/19 16:45 02/13/19 16:46 DC 02/13/19 16:55 25 MG Fentanyl Citrate 50 mcg ONCE ONCE IVP 02/13/19 17:45 02/13/19 17:46 DC 02/13/19 17:47 50 MCG Ketorolac Tromethamine 30 mg ONCE ONCE IVP 02/13/19 16:45 02/13/19 16:46 DC 02/13/19 16:56 30 MG Promethazine HCl 25 mg ONCE ONCE IVP 02/13/19 16:45 02/13/19 16:46 DC 02/13/19 16:56 25 MG Vital Signs/I&O 02/13/19 16:09 Temp 36.8 Pulse 104 Resp 20 B/P (MAP) 158/100 (119) Pulse Ox 99 Blood Pressure Mean: 119 Progress Progress Note : Time: 17:57 Progress Note The patient was treated with Phenergan, Benadryl, and fentanyl with good relief of her symptoms. Departure Impression Primary Impression: Nausea and vomiting Qualified Codes: R11.2 - Nausea with vomiting, unspecified Additional Impression: Headache Qualified Codes: R51 - Headache Disposition: 01 HOME, SELF-CARE Condition: Improved Departure-Patient Inst. Decision time for Depature: 18:00 Referrals: LILY ANN DO (PCP) Primary Care Physician BASILIA ANN DNP (Family) Primary Care Physician Patient Instructions: Headache, Adult, Nausea and Vomiting, Adult (DC) Add. Discharge Instructions: Vicodin and Zofran as prescribed. Rest at home this weekend. Follow-up Dr. العراقي on Friday if not well. Return if any problems or questions. All discharge instructions reviewed with patient and/or family. Voiced understanding. Scripts Hydrocodone/Acetaminophen (Vicodin 5-300 mg Tablet) 1 Each Tablet 1-2 EACH PO Q6H PRN for PAIN-MODERATE MDD 10 for 7 Days, #20 TAB Prov: VILMA ALEMAN MD 02/13/19 Ondansetron (Ondansetron Odt) 4 Mg Tab.rapdis 4 MG PO Q4H PRN for NAUSEA/VOMITING, #14 TAB Prov: VILMA ALEMAN MD 02/13/19 VILMA ALEMAN MD Feb 13, 2019 18:00
[2019-02-13] MEDS ORDERED: ONDA4TAB11 PO (18:02)
[2019-02-13] MEDS ORDERED: HYDR-3455 PO (18:02)
[2019-02-13 18:30] VITALS: BP 140/86
== END 2019-02-13 18:30 | disposition home or self-care (01) ==
LOC: EDUNIT# 15:43 → ER 15:45
DX: R11.2 Nausea with vomiting, unspecified (principal); R51 Headache; E03.9 Hypothyroidism, unspecified; F41.9 Anxiety disorder, unspecified; F32.9 Major depressive disorder, single episode, unspecified; Z88.0 Allergy status to penicillin; Z88.1 Allergy status to other antibiotic agents; Z88.8 Allergy status to other drugs, medicaments and biological substances; Z90.710 Acquired absence of both cervix and uterus
CPT/HCPCS: 36415; 80053; 81000; 85025; 87088; 96361; 96374; 96375

== ENCOUNTER → 2019-05-17 | Outpatient (CLI) | payer BC ==
[~2019-05-17] MED LIST changes: +HYDR-3455 PO; -LIOT5TAB PO; +LIOT5TAB10 PO; +ONDA4TAB11 PO; -TRAZ-222 PO; +TRZ50T PO
--- NOTE | 2019-05-17 11:30 | Diagnostic Imaging Report ---
PROCEDURE: US Non-ob pelvis comp/trans. TECHNIQUE: Multiple realtime grayscale images were obtained of the pelvis in various projections endovaginally. Transabdominal imaging was also performed. INDICATION: Right lower quadrant pain. History of ovarian cyst. Partial hysterectomy. COMPARISON: 09/24/2018 FINDINGS: The uterus is absent consistent with history of hysterectomy. The right and left ovaries are not seen due to bowel gas. No masses or fluid collections are seen. IMPRESSION: 1. Absent uterus, consistent with history of hysterectomy. 2. The bilateral ovaries are not seen due to bowel gas. No mass or fluid collection is seen. Dictated by: Dictated on workstation # [id number]
== END ==
LOC: RAD 09:53
PROVIDERS: ATTEND Nurse Practitioner
DX: R10.31 Right lower quadrant pain (principal)
CPT/HCPCS: 76830; 76856

== ENCOUNTER → 2019-07-27 | Outpatient (CLI) | payer BC ==
--- NOTE | 2019-07-27 13:00 | Diagnostic Imaging Report ---
PROCEDURE: US Renal Bilateral. TECHNIQUE: Multiple Real-time grayscale images were obtained over the kidneys in various projections bilaterally. INDICATION: Urinary tract infections. FINDINGS: The right kidney measures 11.7 x 5.6 x 4.8 cm and the left kidney measures 10.8 x 5.2 x 5.3 cm. The cortical thickness and echogenicity are normal. No calculi are seen. There is no hydronephrosis. The prevoid bladder volume is 196 mL. The post void volume is 17 mL. Bilateral ureteral jets were visualized. No bladder wall thickening or mass is detected. Note is made of a left ovarian cyst measuring 4.9 cm x 3.8 cm x 4.1 cm. IMPRESSION: 1. Unremarkable renal ultrasound. 2. There is a 4.9 cm left ovarian cyst. Dictated by: Dictated on workstation # [id number]
== END ==
LOC: RAD 12:07
PROVIDERS: ATTEND Nurse Practitioner Family
DX: N30.01 Acute cystitis with hematuria (principal); N39.3 Stress incontinence (female) (male); N83.202 Unspecified ovarian cyst, left side
CPT/HCPCS: 76770

== ENCOUNTER 2019-11-08 04:01 | Emergency (ER) | payer BC ==
[~2019-11-08] VITALS: Ht 167 cm; Wt 99.7 kg
--- NOTE | 2019-11-08 04:19 | ED Lower Extremity ---
General Stated Complaint: L ANKLE PAIN Source: patient History of Present Illness Date Seen by Provider: Nov 08, 2019 Time Seen by Provider: 04:05 Initial Comments PT ARRIVES VIA EMS FROM HOME PT STATES JUST PRIOR TO ARRIVAL, SHE WAS OUTSIDE IN HER YARD WITH THE DOG, AND SHE STEPPED IN A HOLE AND TWISTED HER LEFT ANKLE--WAS WEARING "FLIP FLOPS" AT THE TIME UNABLE TO BEAR WEIGHT ON LEFT FOOT, C/O SEVERE PAIN IN LEFT ANKLE NO PARESTHESIAS OR MOTOR DEFICITS NO OTHER INJURIES FROM THE INCIDENT NO PRIOR INJURIES TO THIS FOOT/ANKLE/LEG PCP: DR. ANN Allergies and Home Medications Allergies Coded Allergies: Penicillins (Verified Allergy, Mild, RASH, 08/21/17) vancomycin (Unverified Allergy, Mild, JOHN SYNDROME, 08/21/17) Uncoded Allergies: skin glue (Adverse Reaction, Mild, itchy, red, raised rash, 10/13/18) Home Medications Bupropion HCl 150 Mg Tab.er.24h, 150 MG PO BID, (Reported) Hydrocodone Bit/Acetaminophen 1 Tab Tab, 2 TAB PO Q6HR PRN for PAIN-MODERATE Prescribed by: DIPESH GUADALUPE on 10/08/18 1002 Hydrocodone/Acetaminophen 1 Each Tablet, 1-2 EACH PO Q6H PRN for PAIN-MODERATE Prescribed by: VILMA ALEMAN MD on 02/13/191801 Hydrocodone/Acetaminophen 1 Each Tablet, 1 EACH PO Q4-6 HOURS PRN for PAIN Prescribed by: NETTIE NEWMAN on 11/08/19 0520 Ibuprofen 600 Mg Tablet, 600 MG PO Q6H Prescribed by: DIPESH GUADALUPE on 10/08/18 1002 Levothyroxine Sodium 100 Mcg Tablet, 100 MCG PO DAILY, (Reported) Liothyronine Sodium 5 Mcg Tablet, 5 MCG PO DAILY, (Reported) Magnesium Oxide 500 Mg Capsule, 500 MG PO DAILY, (Reported) Multivits,Ca,Minerals/Iron/FA 1 Each Tablet, 1 EACH PO DAILY, (Reported) Ondansetron 4 Mg Tab.rapdis, 4 MG PO Q4H PRN for NAUSEA/VOMITING Prescribed by: VILMA ALEMAN MD on 02/13/191801 Semaglutide 1 Mg/0.75 Ml Pen.injctr, 1 MG SQ WEEK, (Reported) Spironolactone 100 Mg Tablet, 100 MG PO DAILY, (Reported) Trazodone HCl 50 Mg Tablet, 50 MG PO HS, (Reported) Patient Home Medication List Home Medication List Reviewed: Yes Review of Systems Constitutional: no symptoms reported : No (S/P HYSTERECTOMY) Musculoskeletal: see HPI Skin: no symptoms reported Psychiatric/Neurological: No Symptoms Reported Past Omxymkl-Gmdjnh-Oyvdaf Hx Past Med/Social Hx: Reviewed and Corrections made Patient Social History Recent Hopitalizations: No Immunizations Up To Date Date of Influenza Vaccine: Nov 25, 2017 Seasonal Allergies Seasonal Allergies: Yes (WEEKLY ALLERGY SHOTS) Past Medical History Surgeries: Yes (SINUS SURGERY, BREAST REDUCTION, DXLS) Breast, Gallbladder, Hysterectomy, Oophorectomy Respiratory: No Cardiac: Yes (IRREG HEARTBEAT A CHILD) Irregular Heartbeat Neurological: Yes Headaches /Migraines Reproductive Disorders: Yes (CPP) Female Reproductive Disorders: Menstrual Problems, Polycystic Ovarian Dis 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 Sexually Transmitted Disease: No HIV/AIDS: No Genitourinary: No Gastrointestinal: No Musculoskeletal: Yes (DISC ISSUES) Degenerate Disk Disease, Chronic Back Pain Endocrine: Yes (INSULIN RESISTANCE;ASLENA'S) Hypothyroidsim HEENT: No Loss of Vision: Bilateral Hearing Impairment: Denies Cancer: No Psychosocial: Yes Anxiety, Depression Integumentary: No Blood Disorders: No Adverse Reaction/Blood Tranf: No (N/A) Family Medical History No Pertinent Family Hx Physical Exam Vital Signs Vital Signs - First Documented 11/08/19 04:05 Temp 36.0 Pulse 80 Resp 20 B/P (MAP) 129/90 (103) Pulse Ox 100 Capillary Refill : Height, Weight, BMI Height: 5'6.00" Weight: 211lbs. 0.0oz. 95.250770st; 35.00 BMI Method:Stated General Appearance: obese, other (ANXIOUS, APPEARS TO BE IN PAIN. ) Neck: non-tender, full range of motion, supple, normal inspection Cardiovascular: normal peripheral pulses, regular rate, rhythm, no murmur Respiratory: chest non-tender, normal breath sounds, no respiratory distress, no accessory muscle use Gastrointestinal: non tender, soft Back: normal inspection, no CVA tenderness, no vertebral tenderness Hips: bilateral hip normal inspection Legs: bilateral leg normal inspection Knees: bilateral knee normal inspection Ankles: right ankle normal inspection; left ankle bone tenderness, left ankle limited range of motion, left ankle pain, left ankle soft tissue tenderness, left ankle swelling, left ankle other (TENDERNESS TO BIILATERAL MALLEOLI ; NO HEEL TENDERNESS, NO ACHILLES TENDERNESS. NO ANTERIOR ANKLE TENDERNESS. MILD SWELLING MEDIALLY AND LATERALLY. DISTAL MOTOR/SENSORY/VASCULAR INTACT. 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, no motor/sensory deficits, alert, oriented x 3 Skin: normal color, warm/dry, tattoos/piercings (MUJLTIPLE TATTOOS) Procedures/Interventions Splinting and Joint Reduction : Ordered: Crutches Hand-Made Type: orthoglass Splint Application: Short Leg Progress/Results/Core Measures Results/Orders My Orders Orders - NETTIE NEWMAN K DO Tibia/Fibula, Left, 2 Views (11/08/19 04:10) Foot, Left, 3 Views (11/08/19 04:10) Ankle, Left, 3 Views (11/08/19 04:10) Hydrocodone/Apap 5/325 Tablet (Lortab 5 (11/08/19 05:15) Rx-Hydrocodone/Apap 5-325 Mg (Rx-Vicodin (11/08/19 05:15) Ed Ortho/Other Supplies Order (11/08/19 05:01) Crutches (11/08/19 05:01) Medications Given in ED Current Medications Medications Dose Ordered Sig/Trey Route Start Time Stop Time Status Last Admin Dose Admin Acetaminophen/ Hydrocodone Bitart 1 ea Q4H PRN PO 11/08/19 05:15 11/08/19 05:12 1 EA Acetaminophen/ Hydrocodone Bitart 1 tab ONCE ONCE PO 11/08/19 05:15 11/08/19 05:16 DC 11/08/19 05:12 1 TAB Vital Signs/I&O 11/08/19 04:05 Temp 36.0 Pulse 80 Resp 20 B/P (MAP) 129/90 (103) Pulse Ox 100 Diagnostic Imaging Comments XRAYS--ALL PER RADIOLOGIST REPORTS AT 0544 LEFT ANKLE--FINDINGS: There is an oblique fracture of the distal fibular diaphysis, with mild lateral displacement of the distal fracture fragment by half shaft's width. No other fracture is identified. There is moderate widening of the medial clear space. There is moderate edema of the ankle soft tissues. IMPRESSION: Mildly displaced oblique fracture of the distal fibula. Widening of the medial clear space is compatible with disruption of the medial collateral ligament. LEFT TIB-FIB--FINDINGS: There is a transverse fracture of the distal fibular metaphysis, with lateral displacement of the distal fracture fragment by half shaft's width. No other fracture is identified. There is widening of the medial clear space. There is edema in the ankle soft tissues. Soft tissue gas is demonstrated. IMPRESSION: Mildly displaced fracture of the distal fibula. Widening of the medial clear space, compatible with ligamentous injury. LEFT FOOT--FINDINGS: There is a mildly displaced fracture of the distal fibula, better seen on dedicated ankle and tibia/fibular radiographs. No other fracture or acute osseous abnormality is identified. No significant arthritic changes noted. Soft tissues are unremarkable. IMPRESSION: Fracture of the distal fibula is better seen on left ankle and tibia/fibula radiographs. No acute fracture or dislocation involving the foot. Reviewed: Reviewed by Me Departure Impression Primary Impression: Closed fracture of left distal fibula Additional Impression: POSSIBLE LIGAMENTOUS INJURY TO LEFT ANKLE Disposition: 01 HOME, SELF-CARE Condition: Stable Departure-Patient Inst. Referrals: LILY ANN DO (PCP) Primary Care Physician BASILIA ANN DNP (Family) Primary Care Physician CLARISSA BENSON MD Patient Instructions: Ankle Fracture (DC), How to Use Crutches, SPLINT CARE Add. Discharge Instructions: LEAVE SPLINT IN PLACE AT ALL TIMES--NO DO NOT GET WET NO WEIGHT BEARING, USE CRUTCHES AT ALL TIMES ICE TO AREA AT 20 MINUTE INTERVALS ELEVATE FOOT MUCH POSSIBLE FOLLOW UP WITH DR. BENSON IN 2-3 DAYS FOR FURTHER CARE Scripts Hydrocodone/Acetaminophen (Hydrocodone-Acetamin 5-325 mg) 1 Each Tablet 1 EACH PO Q4-6 HOURS PRN for PAIN, #20 TAB Prov: NETTIE NEWMAN DO 11/08/19 Work/School Note: Work Release Form Date Seen in the Emergency Department: Nov 08, 2019 Return to Work: Nov 09, 2019 NETTIE NEWMAN DO Nov 08, 2019 04:19
[2019-11-08] MEDS ORDERED: RX-HYDROCODONE/APAP 5/325 MG #4 TAB PK PO PRN (05:15)
[2019-11-08] MEDS ORDERED: HYDROcodone/APAP 5 MG/325 MG (LORTAB) TAB PO ONE (05:15)
[2019-11-08] MEDS ORDERED: ACHD5005 PO (05:20)
--- NOTE | 2019-11-08 05:38 | Diagnostic Imaging Report ---
EXAMINATION: Left ankle, 3 views INDICATION: Traumatic left ankle injury. Patient reports a fall into a hole. COMPARISON: None available. FINDINGS: There is an oblique fracture of the distal fibular diaphysis, with mild lateral displacement of the distal fracture fragment by half shaft's width. No other fracture is identified. There is moderate widening of the medial clear space. There is moderate edema of the ankle soft tissues. IMPRESSION: Mildly displaced oblique fracture of the distal fibula. Widening of the medial clear space is compatible with ligamentous disruption. Dictated by: Dictated on workstation # [id number]
--- NOTE | 2019-11-08 05:40 | Diagnostic Imaging Report ---
EXAMINATION: Left tibia/fibula, AP and lateral views INDICATION: Traumatic left lower extremity pain related to fall in a hole. COMPARISON: None available. FINDINGS: There is a transverse fracture of the distal fibular metaphysis, with lateral displacement of the distal fracture fragment by half shaft's width. No other fracture is identified. There is widening of the medial clear space. There is edema in the ankle soft tissues. Soft tissue gas is demonstrated. IMPRESSION: Mildly displaced fracture of the distal fibula. Widening of the medial clear space, compatible with ligamentous injury. Dictated by: Dictated on workstation # [id number]
--- NOTE | 2019-11-08 05:41 | Diagnostic Imaging Report ---
EXAMINATION: Left foot, 3 views INDICATION: Traumatic left foot pain related to fall in a hole. COMPARISON: None available. FINDINGS: There is a mildly displaced fracture of the distal fibula, better seen on dedicated ankle and tibia/fibular radiographs. No other fracture or acute osseous abnormality is identified. No significant arthritic changes noted. Soft tissues are unremarkable. IMPRESSION: Fracture of the distal fibula is better seen on left ankle and tibia/fibula radiographs. No acute fracture or dislocation involving the foot. Dictated by: Dictated on workstation # [id number]
[2019-11-08 05:50] VITALS: BP 120/76
== END 2019-11-08 05:51 | disposition home or self-care (01) ==
LOC: EDUNIT# 04:01 → ER 04:05
DX: S82.422A Displaced transverse fracture of shaft of left fibula, initial encounter for closed fracture (principal); E66.9 Obesity, unspecified; F32.9 Major depressive disorder, single episode, unspecified; F41.9 Anxiety disorder, unspecified; E03.9 Hypothyroidism, unspecified; G89.29 Other chronic pain; M54.9 Dorsalgia, unspecified; Z68.35 Body mass index [BMI] 35.0-35.9, adult; Z88.0 Allergy status to penicillin; Z88.8 Allergy status to other drugs, medicaments and biological substances; Z79.890 Hormone replacement therapy; Z79.891 Long term (current) use of opiate analgesic; X50.1XXA Overexertion from prolonged static or awkward postures, initial encounter
CPT/HCPCS: 29505; 73590; 73610; 73630

== ENCOUNTER → 2020-10-19 | Outpatient (CLI) | payer BC ==
--- NOTE | 2020-10-19 17:12 | Diagnostic Imaging Report ---
INDICATION: Bronchitis. EXAMINATION: PA and lateral views of the chest are obtained. FINDINGS: Heart size and pulmonary vascularity are within normal limits, and the lungs are clear, bilaterally. IMPRESSION: Unremarkable chest. Dictated by: Dictated on workstation # [id number]
--- NOTE | 2020-10-19 17:14 | Diagnostic Imaging Report ---
INDICATION: Abdominal pain. EXAMINATION: AP view of the abdomen was performed. FINDINGS: There is moderate amount of stool throughout the colon. There is no evidence of transition point to indicate an obstruction. There is no evidence of free intraperitoneal gas or pneumatosis. No pathologic abdominal calcification is seen. IMPRESSION: No acute abnormality is detected. Dictated by: Dictated on workstation # [id number]
== END ==
LOC: RAD 16:32
PROVIDERS: ATTEND Nurse Practitioner Family
DX: J40 Bronchitis, not specified as acute or chronic (principal); R10.9 Unspecified abdominal pain
CPT/HCPCS: 71046; 74018

== ENCOUNTER 2022-06-20 07:52 | Emergency (ER) | payer BC ==
[~2022-06-20] VITALS: Ht 167 cm; Wt 72.0 kg
[~2022-06-20 07:52] MED LIST changes: +LEVO-55 PO; -LEVO500T80 PO
[2022-06-20] MEDS ORDERED: KETOROLAC 30 MG/ML VIAL IVP STA (08:18)
[2022-06-20] MEDS ORDERED: diphenhydrAMINE 50 MG/ML INJ (BENADRYL) IV STA (08:18)
[2022-06-20] MEDS ORDERED: PROMETHAZINE INJ 25 MG/ML (PHENERGAN) AMP IVP STA (08:18)
[2022-06-20] MEDS ORDERED: NS IV 1000 ML 1,000 ML IV STA (08:18)
--- NOTE | 2022-06-20 08:31 | ED Headache ---
General Chief Complaint: Head/Cervical Problems Stated Complaint: MIGRAINE Nursing Triage Note: PT STATES HX OF MIGRAINES, STARTED ABOUT 1600 YESTERDAY, STATES SHE GETS ONE LIKE THIS ABOUT ONCE A YEAR, TOOK 2 RIZATRIPTAN 10 MG LAST NIGHT WITH NO RELIEF Source: patient Exam Limitations: no limitations History of Present Illness Date Seen by Provider: June 20, 2022 Time Seen by Provider: 08:13 Initial Comments Here with report of frontal migraine that is typical and achy/pressure. Its frontal and this is her typical location. She took her migraine medication whic h usually will shane that and it did not work. Normally is able to get through these but states she has to visit the emergency department about once a year. Does have nausea but no vomiting. Reports that she is probably drinking less and eating less due to the headache and feels like she might be a little bit dehydrated. Does report photophobia. Denies fever chills or other co nstitutional symptoms. Timing/Duration: other (16 hours) Severity/Quality: moderate, severe, achy, pressure Location: frontal Prior Headaches/Recent Trauma: occasional headaches Modifying Factors: worse with exposure to light Associated Symptoms: No confusion, No facial pain, No fever/chills, No loss of consciousness, No nasal congestion Allergies and Home Medications Allergies Coded Allergies: Penicillins (Verified Allergy, Mild, RASH, 08/21/17) vancomycin (Unverified Allergy, Mild, JOHN SYNDROME, 08/21/17) Uncoded Allergies: skin glue (Adverse Reaction, Mild, itchy, red, raised rash, 10/13/18) Patient Home Medication List Home Medication List Reviewed: Yes Bupropion HCl (Wellbutrin Xl) 150 Mg Tab.er.24h, 150 MG PO BID, (Reported) Entered as Reported by: MAURI LAIRD on 08/21/17 0915 Hydrocodone Bit/Acetaminophen (Lortab 5 Mg Tablet) 1 Tab Tab, 2 TAB PO Q6HR PRN for PAIN-MODERATE Prescribed by: DIPESH GUADALUPE on 10/08/18 1002 Hydrocodone/Acetaminophen (Vicodin 5-300 mg Tablet) 1 Each Tablet, 1-2 EACH PO Q6H PRN for PAIN-MODERATE Prescribed by: VILMA ALEMAN MD on 02/13/19 1802 Hydrocodone/Acetaminophen (Hydrocodone-Acetamin 5-325 mg) 1 Each Tablet, 1 EACH PO Q4-6 HOURS PRN for PAIN Prescribed by: NETTIE NEWMAN on 11/08/19 0520 Ibuprofen (Ibuprofen) 600 Mg Tablet, 600 MG PO Q6H Prescribed by: DIPESH GUADALUPE on 10/08/18 1002 Levothyroxine Sodium (Synthroid) 100 Mcg Tablet, 100 MCG PO DAILY, (Reported) Entered as Reported by: LESTER CAMACHO on 12/06/14 1836 Liothyronine Sodium (Liothyronine Sodium) 5 Mcg Tablet, 5 MCG PO DAILY, (Reported) Entered as Reported by: MAURI LAIRD on 08/21/17 0915 Magnesium Oxide (Magnesium) 500 Mg Capsule, 500 MG PO DAILY, (Reported) Entered as Reported by: NATHALY GROSS on 10/02/18 1335 Multivits,Ca,Minerals/Iron/FA (Women's Daily Caplet) 1 Each Tablet, 1 EACH PO DAILY, (Reported) Entered as Reported by: NATHALY GROSS on 10/02/18 1332 Ondansetron (Ondansetron Odt) 4 Mg Tab.rapdis, 4 MG PO Q4H PRN for NAUSEA/VOMITING Prescribed by: VILMA ALEMAN MD on 02/13/19 1802 Semaglutide (Ozempic) 1 Mg/0.75 Ml Pen.injctr, 1 MG SQ WEEK, (Reported) Entered as Reported by: NATHALY GROSS on 10/02/18 1332 Spironolactone (Spironolactone) 100 Mg Tablet, 100 MG PO DAILY, (Reported) Entered as Reported by: MAURI LAIRD on 08/21/17 0915 Trazodone HCl (Trazodone HCl) 50 Mg Tablet, 50 MG PO HS, (Reported) Entered as Reported by: MAURI LAIRD on 08/21/17 0915 Review of Systems Review of Systems Constitutional: see HPI; No chills, No fever Eyes: Denies Blurred Vision; Photophobia Ears, Nose, Mouth, Throat: no symptoms reported Respiratory: No cough, No short of breath Cardiovascular: no symptoms reported Gastrointestinal: see HPI Musculoskeletal: no symptoms reported Skin: no symptoms reported Past [id number]-[id number]-Omzqwm Hx Patient Social History Tobacco Use?: No Substance use?: No Alcohol Use?: Yes Alcohol Frequency: Couple times a week Immunizations Up To Date PED Vaccines UTD: Yes Third COVID19 Vaccination Date: YES Seasonal Allergies Seasonal Allergies: Yes (WEEKLY ALLERGY SHOTS) Past Medical History Surgery/Hospitalization HX: MIGRAINES, FX LT ANKLE, HYST, FRANCISCO, SINUS Surgeries: Yes (SINUS SURGERY, BREAST REDUCTION, DXLS) Breast, Gallbladder, Hysterectomy, Oophorectomy Respiratory: No Cardiac: Yes (IRREG HEARTBEAT A CHILD) Irregular Heartbeat Neurological: Yes Headaches /Migraines Reproductive Disorders: Yes (CPP) Female Reproductive Disorders: Menstrual Problems, Polycystic Ovarian Dis [employer]OR [employer] EVENTS History: Hysterectomy Sexually Transmitted Disease: No HIV/AIDS: No Genitourinary: No Gastrointestinal: No Musculoskeletal: Yes (DISC ISSUES) Degenerate Disk Disease, Chronic Back Pain Endocrine: Yes (INSULIN RESISTANCE;SALENA'S) Hypothyroidsim HEENT: No Loss of Vision: Bilateral Hearing Impairment: Denies Cancer: No Psychosocial: Yes Anxiety, Depression Integumentary: No Blood Disorders: No Adverse Reaction/Blood Tranf: No (N/A) Family Medical History Reviewed Nursing Family Hx No Pertinent Family Hx Physical Exam Vital Signs Vital Signs - First Documented 06/20/22 08:05 Temp 36.6 Pulse 79 Resp 18 B/P (MAP) 116/77 (90) Pulse Ox 99 O2 Delivery Room Air Capillary Refill : Less Than 3 Seconds Height, Weight, BMI Height: 5'6.00" Weight: 211lbs. 0.0oz. 95.719011ct; 25.00 BMI Method:Stated General Appearance: WD/WN, no apparent distress HEENT: PERRL/EOMI, pharynx normal Neck: full range of motion, supple Cardiovascular: regular rate, rhythm, no murmur Respiratory: lungs clear, normal breath sounds Gastrointestinal: non tender, soft Psychiatric: alert, oriented x 3 Crainal Nerves: normal speech, PERRL Skin: normal color, warm/dry Progress/Results/Core Measures Results/Orders My Orders Orders - CHAD ANGUIANO MD Promethazine Injection (Phenergan Injec (06/20/22 08:18) Ns Iv 1000 Ml (Sodium Chloride 0.9%) (06/20/22 08:18) Ketorolac Injection (Toradol Injection) (06/20/22 08:18) Diphenhydramine Injection (Benadryl Inje (06/20/22 08:18) Ed Iv/Invasive Line Start (06/20/22 08:18) Fentanyl Inj (Sublimaze Injection) (06/20/22 09:32) Dexamethasone Injection (Decadron Inje (06/20/22 09:45) Medications Given in ED Current Medications Medications Dose Ordered Sig/Trey Route Start Time Stop Time Status Last Admin Dose Admin Dexamethasone Sodium Phosphate 10 mg ONCE ONCE IV 06/20/22 09:45 06/20/22 09:46 DC 06/20/22 09:44 10 MG Vital Signs/I&O 06/20/22 06/20/22 06/20/22 08:05 08:32 09:44 Temp 36.6 36.6 36.6 Pulse 79 Resp 18 B/P (MAP) 116/77 (90) Pulse Ox 99 O2 Delivery Room Air Blood Pressure Mean: 90 Progress Progress Note : Progress Note Seen and evaluated. IV ordered. No indication for labs or imaging at this point. We will give Toradol 30 mg IV, Benadryl 25 mg IV and Phenergan 25 mg IV with 1 L of normal saline and see if this will shane the headache. Monitor patient. Differential diagnosis includes intractable migraine headache versus migraine v ariant 0933: Patient is drowsy and without nausea. Fluids complete. She reports that she still has the headache. We will go to second line agent with Decadron 10 mg IV and fentanyl 50 mcg IV and see how she does. Monitor patient. 1040: Overall doing better and feels like she can go home. Discharged home with return precautions. Patient verbalized understanding of instructions and agreement with plan. Departure Impression Primary Impression: Migraine Qualified Codes: G43.009 - Migraine without aura, not intractable, without status migrainosus Disposition: 01 HOME, SELF-CARE Condition: Improved Departure-Patient Inst. Decision time for Depature: 10:41 Referrals: LILY ANN DO (PCP) Primary Care Physician BASILIA ANN DNP (Family) Primary Care Physician Patient Instructions: Migraines (DC) Add. Discharge Instructions: All discharge instructions reviewed with patient and/or family. Voiced understanding. Continue home medications as previously prescribed. Follow-up with your doctor for recheck and further evaluation. You may take Tylenol/acetaminophen 1000 mg every 6 hours as needed for pain. After 2 PM, you may start ibuprofen 600 mg every 8 hours as needed for pain. Drink plenty of fluids and get plenty of rest. Return for worse pain, vision or balance problems, persistent vomiting, weakness, speech difficulty or other concerns as needed. CHAD ANGUIANO MD June 20, 2022 08:30
[2022-06-20] MEDS ORDERED: fentaNYL INJ 100 MCG/2 ML AMP IVP STA (09:32)
[2022-06-20 10:57] VITALS: BP 112/65
== END 2022-06-20 10:56 | disposition home or self-care (01) ==
LOC: EDUNIT# 07:52 → ER 07:54
DX: G43.909 Migraine, unspecified, not intractable, without status migrainosus (principal); Z79.899 Other long term (current) drug therapy